=== PATIENT | male | born 1995 | race Caucasian/White ===

== ENCOUNTER 2017-12-25 19:51 | Emergency (ER) | payer OTHER ==
[2017-12-25 19:55] VITALS: Ht 172.7 cm
[2017-12-25 21:51] VITALS: BP 135/69
== END 2017-12-25 21:50 | disposition home or self-care (01) ==
LOC: ED 19:51
DX: K04.7 Periapical abscess without sinus (principal); I10 Essential (primary) hypertension
CPT/HCPCS: J3490

== ENCOUNTER 2019-01-29 17:34 | Emergency (ER) | payer OTHER ==
[~2019-01-29] VITALS: Ht 170.2 cm; Wt 163.3 kg
[2019-01-29 18:26] VITALS: Ht 170.2 cm; Wt 163.3 kg
[2019-01-29 21:09] LABS: CALCIUM 8.9 mg/dL (8.5-10.1); CARBON DIOXIDE 27.4 mmol/L (21-32); CHLORIDE SERUM 105 mmol/L (98-107); CREATININE SERUM 0.8 mg/dL (0.7-1.3); GFR1 > 60 mL/min; GLUCOSE SERUM 90 mg/dL (74-106); POTASSIUM SERUM 4.4 mmol/L (3.5-5.1); SODIUM SERUM 141 mmol/L (136-145)
[2019-01-29 21:49] VITALS: BP 115/68
== END 2019-01-29 21:43 | disposition home or self-care (01) ==
LOC: ED 17:34
PROVIDERS: Emergency Medicine
DX: R20.2 Paresthesia of skin (principal); R07.89 Other chest pain
CPT/HCPCS: Q0092

== ENCOUNTER 2019-08-30 13:31 | Emergency (ER) | payer OTHER ==
[~2019-08-30] VITALS: Ht 170.2 cm; Wt 162.8 kg
[2019-08-30 13:42] VITALS: Ht 170.2 cm; Wt 162.8 kg
[2019-08-30 14:54] LABS: BASOPHIL % 0.9 % (0-2); PLATELET COUNT 283 x10^3mcL (130-400)
[2019-08-30 15:00] LABS: CALCIUM 8.8 mg/dL (8.5-10.1); CARBON DIOXIDE 24.9 mmol/L (21-32); CHLORIDE SERUM 101 mmol/L (98-107); CREATININE SERUM 0.9 mg/dL (0.7-1.3); GFR1 > 60 mL/min; GLUCOSE SERUM 105 mg/dL (74-106); POTASSIUM SERUM 3.8 mmol/L (3.5-5.1); SODIUM SERUM 137 mmol/L (136-145)
[2019-08-30 15:05] LABS: ALBUMIN 3.8 g/dL (3.4-5.0); ALKALINE PHOSPHATASE 73 U/L (46-116); ALT/SGPT 52 U/L (16-63); AST/SGOT 31 U/L (15-37); BILIRUBIN TOTAL 0.6 mg/dL (0.20-1.00); LIPASE 69 IU/L (73-393); TOTAL PROTEIN, SERUM 7.6 g/dL (6.4-8.2)
[2019-08-30 16:30] VITALS: BP 145/80
== END 2019-08-30 16:30 | disposition home or self-care (01) ==
LOC: ED 13:31
PROVIDERS: Emergency Medicine
DX: F43.9 Reaction to severe stress, unspecified (principal); K20.9 Esophagitis, unspecified; R07.89 Other chest pain; R11.2 Nausea with vomiting, unspecified
CPT/HCPCS: J2405; J3490; J7030; Q0092

== ENCOUNTER 2019-09-06 17:41 | Emergency (ER) | payer OTHER ==
[~2019-09-06] VITALS: Ht 170.2 cm; Wt 162.4 kg
[2019-09-06 17:48] VITALS: Ht 170.2 cm; Wt 162.4 kg
[2019-09-06 19:11] LABS: microscopic required? NO
[2019-09-06 19:18] LABS: UA SPECIFIC GRAVITY >=1.030 (1.005-1.035); urine erythrocyte NEGATIVE (NEGATIVE)
[2019-09-06 19:29] LABS: PLATELET COUNT 295 x10^3mcL (130-400); RED CELL DISTRIBUTION WIDTH 12.8 % (11.5-14.5)
[2019-09-06 19:44] LABS: CALCIUM 9.4 mg/dL (8.5-10.1); CHLORIDE SERUM 104 mmol/L (98-107); CREATININE SERUM 0.9 mg/dL (0.7-1.3); GFR1 > 60 mL/min; GLUCOSE SERUM 97 mg/dL (74-106); POTASSIUM SERUM 4.1 mmol/L (3.5-5.1); SODIUM SERUM 138 mmol/L (136-145)
[2019-09-06 19:48] LABS: ALBUMIN 3.9 g/dL (3.4-5.0); ALKALINE PHOSPHATASE 76 U/L (46-116); ALT/SGPT 136 U/L (16-63); AMYLASE 33 U/L (25-115); AST/SGOT 35 U/L (15-37); BILIRUBIN TOTAL 0.41 mg/dL (0.20-1.00); LIPASE 89 IU/L (73-393); TOTAL PROTEIN, SERUM 7.5 g/dL (6.4-8.2)
[2019-09-06 22:00] VITALS: BP 133/72
== END 2019-09-06 22:00 | disposition home or self-care (01) ==
LOC: ED 17:41
PROVIDERS: Emergency Medicine
DX: K40.90 Unilateral inguinal hernia, without obstruction or gangrene, not specified as recurrent (principal); I10 Essential (primary) hypertension; E66.01 Morbid (severe) obesity due to excess calories
CPT/HCPCS: J1885; J2270; J2405